=== PATIENT | female | born 1955 | race Caucasian/White ===

== ENCOUNTER 2016-07-28 15:58 | Emergency (ER) | payer MEDICARE, OTHER ==
[~2016-07-28] VITALS: Ht 152.4 cm; Wt 79.0 kg
[2016-07-28 15:59] VITALS: Ht 152.4 cm; Wt 79.0 kg
[2016-07-28] MEDS ORDERED: ACET500C5 PO (16:21)
--- NOTE | 2016-07-28 16:29 | ERD ---
ER Documentation Chief Complaint Date/Time DATE: 07/28/16 TIME: 16:24 Chief Complaint LT WRIST PAIN , NO TRAUMA HPI This a 60-year-old female who presents the emergency department today complaining of left wrist pain for the past 2 years. Patient states that has gotten worse in the past couple of days. States she has been diagnosed with arthritis already. See she has an appointment in 1 month with a peanut shaker. States that she has taken diclofenac, tramadol with limited improvement in symptoms. States she is here she wants something stronger for the pain. Denies any fevers or chills. Denies any trauma. ROS All systems reviewed and are negative except as per history of present illness. Medications Home Meds Active Scripts Acetaminophen* (Tylophen*) 500 Mg Capsule, 1 CAP PO Q6H Y for PAIN AND OR ELEVATED TEMP, #30 CAP Prov:BUSHRA RODRIGZE PA-C 07/28/16 Physical Exam Vitals Vital Signs Date Time Temp Pulse Resp B/P Pulse Ox O2 Delivery O2 Flow Rate FiO2 07/28/16 15:59 98.1 88 18 154/70 98 Physical Exam Const: Pleasant, no acute distress Head: Atraumatic Eyes: Normal Conjunctiva ENT: Normal External Ears, Nose and Mouth. Neck: Full range of motion..~ No meningismus. Resp: Clear to auscultation bilaterally Cardio: Regular rate and rhythm, no murmurs Abd: Soft, non tender, non distended. Normal bowel sounds Skin: No petechiae or rashes MSK: Left wrist with no obvious deformity. No effusion. No ecchymosis. Mild effusion over thenar eminence. Full active range of motion pronation supination. Decreased range of motion with flexion and extension secondary to pain. Pulses 2+. Distal neurovascularly intact. Neur: Awake and alert Psych: Normal Mood and Affect Procedures/MDM This 60-year-old female who presents the emergency department today complaining of left wrist pain that is been ongoing for the past 2 years and worsening over the past couple of days. Patient is ready been diagnosed with osteoarthritis. There is no new trauma and I do not feel that she requires imaging at this time. I have low suspicion for acute fracture dislocation. Patient symptoms at this time most consistent with arthritis given the chronic nature of her symptoms versus strain versus sprain. Low suspicion for septic joint or gout. She is afebrile and otherwise well-appearing. This is the patient's first visit to the emergency department. She was requesting stronger pain medication despite already taking tramadol and diclofenac. I have asked Vaughn to the patient that her arthritis is chronic in nature and I do not feel that giving her any stronger pain medication would be beneficial to her at this time. Patient understood. I did offer to give the patient Tylenol that she could try or as a supplement to her usual pain medication. I also give the patient a Velcro wrist brace to wear for comfort as she had only been using an Adan wrap. Patient reported feeling symptomatically better after being placed in a wrist brace. Patient was instructed to follow-up and keep her appointment with her peanut shaker next month and I also give her referral information for medical sales specialist locally. Patient is given a prescription for Tylenol. At this time the patient is stable for discharge and outpatient management. Patient should follow up with their PCP in the next 1-2 days. They may return to the emergency department sooner for any persistent or worsening of symptoms. Patient understood and agreed with the plan. Departure Diagnosis: Primary Impression: Pain in wrist Laterality: left Qualified Code: M25.532 - Left wrist pain Condition: Fair Patient Instructions: What Is Arthritis? Referrals: your [employer] [facility] Hours: Mon-Tue 9:00 AM - 5:00 PM Additional Instructions: Call your primary care doctor TOMORROW for an appointment during the next 1-2 days.See the doctor sooner or return here if your condition worsens before your appointment time. Take Tylenol and your usual pain medication Use wrist brace for comfort Keep appointment with [facility] Make an appointment with medical sales specialist BUSHRA RODRIGEZ PA-C July 28, 2016 16:29
== END 2016-07-28 16:22 | disposition home or self-care (01) ==
LOC: E/R 15:58
DX: M25.532 Pain in left wrist (principal)
CPT/HCPCS: 99283